=== PATIENT | male | born 1960 | race Caucasian/White ===

== ENCOUNTER 2019-04-15 08:59 | Inpatient (IN) | payer OTHER ==
[2019-04-15] VITALS (587 sets, daily range): BP systolic 91–132; BP diastolic 65–79; PULSE 77–98; TEMP 98.3–101.2; O2SAT 83–100
[~2019-04-15] VITALS: Ht 172.7 cm; Wt 71.1 kg
--- NOTE | 2019-04-15 10:00 | NUR ---
Pt admitted to ICU bed 2 from [facility] via EMS. Pt A/Ox4. Pt on levophed gtt through Left PIV AC. Pt states he feel tired. PT able to transfer to ICU bed. Pt connect to [facility]. HR SR 70s. SBP 90s with levophed gtt. Pt c/o pain 4/10 chest, states hurts from coughing. Assessment completed. Discussed plan of care r/t vital signs, dr haque, and levophed gtt with pt. Pt verbalized understanding. CAll light in reach.
--- NOTE | 2019-04-15 10:15 | NUR ---
Pt transferred from [facility] with Levophed 16mg concentration gtt. Levophed 16mg gtt dc'd and changed to Levophed 4mg concentration. SBP 90s.
[2019-04-15] MEDS ORDERED: ASPIRIN 81M81 MG/TA2 PO (10:18)
[2019-04-15] MEDS ORDERED: TENORMIN 2525 MG/TAB PO (10:19)
[2019-04-15] MEDS ORDERED: PERIACTIN 4MG TA4 MG PO (10:19)
[2019-04-15] MEDS ORDERED: DULCOLAX STOOL100 MG PO (10:20)
[2019-04-15] MEDS ORDERED: VALIUM 2MG T2 MG/TAB PO (10:20)
[2019-04-15] MEDS ORDERED: EPA FISH OIL1 SGL PO (10:21)
[2019-04-15] MEDS ORDERED: IBU600 MG PO (10:21)
[2019-04-15] MEDS ORDERED: HCTZ 25MG TAB25 MG PO (10:21)
[2019-04-15] MEDS ORDERED: MELATIN 3 MG-11 TAB PO (10:22)
[2019-04-15] MEDS ORDERED: MULTIPLE VITAMI1 CAP PO (10:22)
[2019-04-15] MEDS ORDERED: PRINIVIL10 MG PO (10:22)
[2019-04-15] MEDS ORDERED: PRILOSEC 20MG20 MG PO (10:23)
--- NOTE | 2019-04-15 11:30 | NUR ---
Right IJ TLC inserted by Dr Neal at bedside. Placement verified by Dr Neal and hoang to use TLC.
[2019-04-15] MEDS ORDERED: TENORMIN 5050 MG/TAB PO (12:28)
[2019-04-15] MEDS ORDERED: K-DUR20 MEQ PO (12:37)
[2019-04-15 12:38] LABS: BASO % 0.1 % (0.0-2.0); GRAN # 6.6 (1.4-6.5); GRAN % 81.6 % (42.2-75.2); HEMOGLOBIN 12.2 g/dl (13.5-18.0); LYMPH # 0.8 (1.2-3.4); LYMPH % 10.1 % (20.0-51.0); MEAN CELL VOLUME 94 fl (80.0-100.0); MEAN CORPUSCULAR HEMOGLOBIN 31 pg (27.0-31.0); MEAN CORPUSCULAR HGB CONC 33 g/dl (33.0-37.0); MEAN PLATELET VOLUME 9.5 fl (7.4-10.4); MONO # 0.6 (0.1-0.6); MONO % 7.6 % (1.7-9.3); PLATELET COUNT 95 K/mm3 (130-400); RED BLOOD COUNT 3.94 M/mm3 (4.20-5.60); REDCELL DISTRIBUTION WIDTH-CV 12.6 % (11.5-14.5)
[2019-04-15] MEDS ORDERED: SEROQUEL400 MG PO (12:38)
[2019-04-15] MEDS ORDERED: ZOCOR 80MG80 MG PO (12:39)
[2019-04-15] MEDS ORDERED: FLOMAX 0.40.4 MG/CAP PO (12:40)
[2019-04-15] MEDS ORDERED: EFFEXOR-XR150 MG PO (12:41)
[2019-04-15] MEDS ORDERED: IMITREX 25MG TA25 MG PO (12:42)
[2019-04-15 12:50] LABS: ANION GAP 11 mmol/L (7-16); BLOOD UREA NITROGEN 22 mg/dL (9-20); CALCIUM 8.1 mg/dL (8.4-10.2); CARBON DIOXIDE 20 mmol/L (22-30); CHLORIDE 108 mmol/L (98-107); CREATININE, serum 1.12 (0.66-1.25); GLUCOSE 99 mg/dL (74-106); POTASSIUM 3.6 mmol/L (3.4-5.0); SODIUM 139 mmol/L (137-145)
[2019-04-15 13:05] LABS: TROPONIN-I < 0.012 ng/mL (0.000-0.035)
[2019-04-15 13:12] LABS: ARTERIAL BLD GAS O2 SATURATION 90.6 % (92-100); ARTERIAL BLD GAS TCO2 CT 20.2; ARTERIAL BLOOD GAS BASE EXCESS -4.5 (-2-2); ARTERIAL BLOOD GAS HCO3 19.3 meq/L (22-26); ARTERIAL BLOOD GAS PCO2 31.6 mmHg (35-45); ARTERIAL BLOOD GAS PO2 58.3 mmHg (80-100)
--- NOTE | 2019-04-15 17:45 | NUR ---
Pt in droplet isolation for positive flu A.
[2019-04-15 18:05] LABS: PH 5 (5-8); SQUAMOUS EPITHELIAL 0-2 /hpf; URINE APPEARANCE Clear; URINE BACTERIA None Seen /hpf; URINE BILIRUBIN Negative (NEGATIVE); URINE BLOOD Negative (NEGATIVE); URINE COLOR Yellow; URINE GLUCOSE 3+ (NEGATIVE); URINE KETONE Trace (NEGATIVE); URINE LEUKOCYTE ESTERASE Negative (NEGATIVE); URINE NITRATE Negative (NEGATIVE); URINE PROTEIN(semi-quant) Negative (NEGATIVE); URINE RBC 0-2 /hpf; URINE UROBILINOGEN Negative (NEGATIVE); URINE WBC 0-2 /hpf
[2019-04-15 19:06] LABS: COLLECTION METHOD CLEAN CATCH
--- NOTE | 2019-04-15 19:35 | NUR ---
Report given to BREANNE Ybarra.
[2019-04-16] VITALS (1227 sets, daily range): BP systolic 102–140; BP diastolic 0–99; PULSE 61–97; TEMP 97.8–98.5; O2SAT 89–100
[2019-04-16 05:19] LABS: BASO % 0.3 % (0.0-2.0); GRAN % 69.4 % (42.2-75.2); LYMPH # 1.6 (1.2-3.4); LYMPH % 22.8 % (20.0-51.0); MEAN CELL VOLUME 95 fl (80.0-100.0); MEAN CORPUSCULAR HEMOGLOBIN 31 pg (27.0-31.0); MEAN CORPUSCULAR HGB CONC 33 g/dl (33.0-37.0); MEAN PLATELET VOLUME 9.6 fl (7.4-10.4); MONO # 0.5 (0.1-0.6); MONO % 6.8 % (1.7-9.3); PLATELET COUNT 93 K/mm3 (130-400); RED BLOOD COUNT 3.56 M/mm3 (4.20-5.60); REDCELL DISTRIBUTION WIDTH-CV 12.9 % (11.5-14.5)
[2019-04-16 05:27] LABS: HEMATOCRIT 33.7 % (42.0-52.0)
[2019-04-16 05:35] LABS: ALBUMIN 3.3 gm/dL (3.5-5.0); BILIRUBIN,TOTAL 0.6 mg/dL (0.0-1.0); CALCIUM 8.1 mg/dL (8.4-10.2); CREATININE, serum 0.89 (0.66-1.25); POTASSIUM 3.4 mmol/L (3.4-5.0)
[2019-04-16 05:41] LABS: INR 1.3 (0.8-3.0); PROTHROMBIN TIME 15.5 SECONDS (9.7-12.8)
--- NOTE | 2019-04-16 06:56 | NUR ---
DR. ELDRIDGE AT BEDSIDE WITH PT.
--- NOTE | 2019-04-16 07:15 | NUR ---
Bedside shift report received from BREANNE Ybrara. Patient is awake and resting, no complaints or concerns at this time. Full assessment completed. Call light placed within reach. Bed in lowest position. Side rails up x2.
--- NOTE | 2019-04-16 08:00 | NUR ---
Patient does not have an NPO order and food tray delivered to room. Patient eats about 50% of food. NPO order placed, Dr. Knight made aware. Will continue NPO until heart cath later this afternoon.
--- NOTE | 2019-04-16 11:00 | NUR ---
SUPPLIER RELATIONSHIP DIRECTOR student met with the patient to complete initial intake. The patient lives in [place] with his , Amalia. The patient denies DME usage and patient reports independence with ADLs. The patient's PCP is Captain Feldman and patient receives medications from [place] or [facility] in [place]. The patient belongs the Red Team at the [facility]. The patient does not have advanced directives in the EMR. DPOA-HC form provided. marketing services specialist will continue to follow to ensure a safe discharge.
--- NOTE | 2019-04-16 12:24 | NUR ---
Patient has no complaints or concerns at this time. Full assessment completed. Vital sign stabel. Bed in lowest position. Side rails up x2. Call light remains within reach.
--- NOTE | 2019-04-16 13:08 | NUR ---
SEE MERGE FOR MEDICATION ADMINISTRATION TIMES AND INTRA AND POST SEDATION ASSESSMENTS.
--- NOTE | 2019-04-16 14:30 | NUR ---
Patient transferred back to ICU02 by 2 quality lab assoc RNs with no complications. Right radial site assessed. TR band in place, site soft with no hematoma, no drainage present. Call light placed within reach. Bed in lowest position. Side rails up x3. Patient has no complaints or concerns at this time.
--- NOTE | 2019-04-16 15:00 | NUR ---
Patient is noted to have scant drainage to right radial cath site. No hematoma present. 2cc air added to TR band at this time. Drainage cleaned up as best as possible and no further bleeding is noted at this time. Will continue to closely monitor site.
--- NOTE | 2019-04-16 17:20 | NUR ---
3cc taken out of TR band and site began to ooze. 1cc air replaced in TR band and oozing subsided. TR band has 13cc air in it at this time.
--- NOTE | 2019-04-16 19:30 | NUR ---
Bedside shift report given to BREANNE Ybarra at this time.
--- NOTE | 2019-04-16 22:00 | NUR ---
2119 - LOOSENED TR BAND BY 2 MLS OF AIR. 11 CC OF AIR LEFT. 2139 - LOOSENED TR BAND BY 2 MLS OF AIR. 9 CC OF AIR LEFT.
--- NOTE | 2019-04-16 22:42 | NUR ---
2240 - LOOSENED TR BAND BY 4 MLS OF AIR. 5 CC OF AIR LEFT.
[2019-04-17] VITALS (520 sets, daily range): BP systolic 108–124; BP diastolic 73–90; PULSE 7–99; TEMP 97.2–98.2; O2SAT 94–100
--- NOTE | 2019-04-17 04:28 | NUR ---
Nurse comfirms am ABG has been cancelled.
--- NOTE | 2019-04-17 05:06 | NUR ---
0125 - TR BAND OFF, NO BLEEDING NOTED. SITE SOFT WITH NO HEMATOMA. PULSES STRONG TO PALPATE.
[2019-04-17 06:18] LABS: BASO % 0.2 % (0.0-2.0); EOS % 0.7 % (0-4.0); GRAN # 3.5 (1.4-6.5); HEMOGLOBIN 11.6 g/dl (13.5-18.0); LYMPH # 1.5 (1.2-3.4); LYMPH % 26.8 % (20.0-51.0); MEAN CELL VOLUME 94 fl (80.0-100.0); MEAN CORPUSCULAR HEMOGLOBIN 31 pg (27.0-31.0); MEAN CORPUSCULAR HGB CONC 33 g/dl (33.0-37.0); MEAN PLATELET VOLUME 9.9 fl (7.4-10.4); MONO # 0.5 (0.1-0.6); MONO % 8.8 % (1.7-9.3); PLATELET COUNT 98 K/mm3 (130-400); RED BLOOD COUNT 3.76 M/mm3 (4.20-5.60); REDCELL DISTRIBUTION WIDTH-CV 12.9 % (11.5-14.5)
[2019-04-17 06:22] LABS: INR 1.1 (0.8-3.0); PROTHROMBIN TIME 13.1 SECONDS (9.7-12.8)
[2019-04-17 06:33] LABS: HEMATOCRIT 35.2 % (42.0-52.0)
[2019-04-17 06:53] LABS: ALBUMIN 3.6 gm/dL (3.5-5.0); BILIRUBIN,TOTAL 0.7 mg/dL (0.0-1.0); CALCIUM 8.9 mg/dL (8.4-10.2); CREATININE, serum 0.7 (0.66-1.25); MAGNESIUM 1.8 mg/dL (1.6-2.3); POTASSIUM 3.6 mmol/L (3.4-5.0); TOTAL PROTEIN 6.4 gm/dL (6.4-8.2)
--- NOTE | 2019-04-17 19:23 | NUR ---
Bedside report given to Lucy RAYMUNDO
--- NOTE | 2019-04-17 20:00 | NUR ---
Assessment complete; patient denies any concerns at this time. VS stable. Provided toothbrush and warm wipes for comfort. Will continue to monitor.
[2019-04-18] VITALS (14 sets, daily range): BP systolic 108–116; BP diastolic 80; PULSE 83–91; TEMP 97.7–98; O2SAT 81–86
--- NOTE | 2019-04-18 00:40 | NUR ---
Patient resting in bed; denies any complaints at this time.
--- NOTE | 2019-04-18 05:00 | NUR ---
Patient resting in bed; no complaints at this time.
[2019-04-18 05:35] LABS: BASO % 0.2 % (0.0-2.0); EOS % 0.8 % (0-4.0); GRAN # 2.9 (1.4-6.5); GRAN % 57.3 % (42.2-75.2); HEMOGLOBIN 12.8 g/dl (13.5-18.0); LYMPH # 1.6 (1.2-3.4); LYMPH % 32.7 % (20.0-51.0); MEAN CELL VOLUME 94 fl (80.0-100.0); MEAN CORPUSCULAR HEMOGLOBIN 31 pg (27.0-31.0); MEAN CORPUSCULAR HGB CONC 33 g/dl (33.0-37.0); MEAN PLATELET VOLUME 9.2 fl (7.4-10.4); MONO # 0.4 (0.1-0.6); MONO % 8.6 % (1.7-9.3); PLATELET COUNT 112 K/mm3 (130-400); RED BLOOD COUNT 4.13 M/mm3 (4.20-5.60); REDCELL DISTRIBUTION WIDTH-CV 12.7 % (11.5-14.5)
[2019-04-18 05:52] LABS: INR 1.1 (0.8-3.0); PROTHROMBIN TIME 12.5 SECONDS (9.7-12.8)
[2019-04-18 05:53] LABS: ALBUMIN 4.1 gm/dL (3.5-5.0); BILIRUBIN,TOTAL 0.9 mg/dL (0.0-1.0); CALCIUM 9.4 mg/dL (8.4-10.2); CREATININE, serum 0.82 (0.66-1.25); POTASSIUM 3.7 mmol/L (3.4-5.0); TOTAL PROTEIN 7.2 gm/dL (6.4-8.2)
[2019-04-18] MEDS ORDERED: LEVAQUIN 750MG750 M1 PO (11:40)
[2019-04-18] MEDS ORDERED: LIPITOR 80MG80 MG PO (11:41)
[2019-04-18] MEDS ORDERED: BRILINTA90 MG PO (11:41)
[2019-04-18] MEDS ORDERED: TAMIFLU 75MG75 MG PO (11:41)
[2019-04-18] MEDS ORDERED: TOPROL XL 25MG25 MG PO (11:42)
--- NOTE | 2019-04-18 13:05 | NUR ---
Discharge instructions reviewed. RIJ discontinued per protocol. DC home acc by spouse.
--- NOTE | 2019-04-18 13:12 | NUR ---
The patient discharge home with family today, 04/17. There are no additional needs at this time.
== END 2019-04-18 13:40 | disposition home or self-care (01) | DRG 853 ==
LOC: ICU 08:59
PROVIDERS: Internal Medicine Pulmonary Disease; ADMIT Internal Medicine
PROC: 02HV33Z Insertion of Infusion Device into Superior Vena Cava, Percutaneous Approach (ICD-10-PCS; 2019-04-15)
PROC: 027036Z Dilation of Coronary Artery, One Artery with Three Drug-eluting Intraluminal Devices, Percutaneous Approach (ICD-10-PCS; principal; 2019-04-16)
PROC: B2111ZZ Fluoroscopy of Multiple Coronary Arteries using Low Osmolar Contrast (ICD-10-PCS; 2019-04-16)
PROC: 4A023N7 Measurement of Cardiac Sampling and Pressure, Left Heart, Percutaneous Approach (ICD-10-PCS; 2019-04-16)
DX: A41.89 Other specified sepsis (principal); I21.4 Non-ST elevation (NSTEMI) myocardial infarction; N17.9 Acute kidney failure, unspecified; I25.110 Atherosclerotic heart disease of native coronary artery with unstable angina pectoris; I10 Essential (primary) hypertension; N40.0 Benign prostatic hyperplasia without lower urinary tract symptoms; J10.1 Influenza due to other identified influenza virus with other respiratory manifestations; E11.9 Type 2 diabetes mellitus without complications; Z87.891 Personal history of nicotine dependence
CPT/HCPCS: 99231-AI; 99233-AI; 99239; A4216; C9600; J0153; J0692; J1644; J1956; J2250; J3010; J3480; J7030; J7060; J7120; Q9967

== ENCOUNTER → 2021-07-15 | Outpatient (CLI) | payer OTHER ==
[~2021-07-15] MED LIST: ASPIRIN 81M81 MG/TA2 PO; BRILINTA90 MG PO; DULCOLAX STOOL100 MG PO; EFFEXOR-XR150 MG PO; EPA FISH OIL1 SGL PO; FLOMAX 0.40.4 MG/CAP PO; HCTZ 25MG TAB25 MG PO; IBU600 MG PO; IMITREX 25MG TA25 MG PO; K-DUR20 MEQ PO; LEVAQUIN 750MG750 M1 PO; LIPITOR 80MG80 MG PO; MELATIN 3 MG-11 TAB PO; MULTIPLE VITAMI1 CAP PO; PERIACTIN 4MG TA4 MG PO; PRILOSEC 20MG20 MG PO; PRINIVIL10 MG PO; SEROQUEL400 MG PO; TAMIFLU 75MG75 MG PO; TENORMIN 2525 MG/TAB PO; TENORMIN 5050 MG/TAB PO; TOPROL XL 25MG25 MG PO; VALIUM 2MG T2 MG/TAB PO; ZOCOR 80MG80 MG PO
== END ==
LOC: MHCPAIN 08:29
DX: M47.892 Other spondylosis, cervical region (principal); M54.12 Radiculopathy, cervical region; F17.210 Nicotine dependence, cigarettes, uncomplicated; I50.9 Heart failure, unspecified; Z95.5 Presence of coronary angioplasty implant and graft
CPT/HCPCS: G0463

== ENCOUNTER → 2021-07-30 | Outpatient (CLI) | payer OTHER | LOC: MHCPAIN 08:30 | DX: M47.812 Spondylosis without myelopathy or radiculopathy, cervical region (principal); M54.12 Radiculopathy, cervical region | CPT/HCPCS: J1100; Q9967 ==

== ENCOUNTER → 2021-08-19 | Outpatient (CLI) | payer OTHER | LOC: MHCPAIN 07:39 | DX: M47.812 Spondylosis without myelopathy or radiculopathy, cervical region (principal); M54.12 Radiculopathy, cervical region; M96.1 Postlaminectomy syndrome, not elsewhere classified; I25.10 Atherosclerotic heart disease of native coronary artery without angina pectoris; F17.210 Nicotine dependence, cigarettes, uncomplicated | CPT/HCPCS: G0463 ==

== ENCOUNTER → 2021-09-03 | Outpatient (CLI) | payer OTHER | LOC: MHCPAIN 08:27 | DX: M47.812 Spondylosis without myelopathy or radiculopathy, cervical region (principal); M54.12 Radiculopathy, cervical region | CPT/HCPCS: J0461; J1100; Q9967 ==

== ENCOUNTER → 2021-09-16 | Outpatient (CLI) | payer OTHER | LOC: MHCPAIN 10:38 | DX: M47.812 Spondylosis without myelopathy or radiculopathy, cervical region (principal); M54.12 Radiculopathy, cervical region; G89.29 Other chronic pain | CPT/HCPCS: G0463 ==

== ENCOUNTER → 2021-10-01 | Outpatient (CLI) | payer OTHER | LOC: MHCPAIN 09:00 | DX: M47.812 Spondylosis without myelopathy or radiculopathy, cervical region (principal); M54.12 Radiculopathy, cervical region | CPT/HCPCS: J1100; Q9967 ==

== ENCOUNTER → 2021-11-10 | Outpatient (CLI) | payer OTHER | LOC: MHCPAIN 07:57 | DX: M47.816 Spondylosis without myelopathy or radiculopathy, lumbar region (principal); M54.16 Radiculopathy, lumbar region; M53.3 Sacrococcygeal disorders, not elsewhere classified; M54.12 Radiculopathy, cervical region; F17.210 Nicotine dependence, cigarettes, uncomplicated | CPT/HCPCS: G0463 ==

== ENCOUNTER → 2021-12-07 | Outpatient (CLI) | payer OTHER | LOC: MHCPAIN 09:22 | DX: M47.817 Spondylosis without myelopathy or radiculopathy, lumbosacral region (principal); M53.3 Sacrococcygeal disorders, not elsewhere classified; M54.16 Radiculopathy, lumbar region | CPT/HCPCS: J1100; Q9967 ==

== ENCOUNTER → 2022-03-30 | Outpatient (CLI) | payer OTHER | LOC: MHCPAIN 07:52 | DX: M47.812 Spondylosis without myelopathy or radiculopathy, cervical region (principal); M54.2 Cervicalgia; M54.50 Low back pain, unspecified; F17.210 Nicotine dependence, cigarettes, uncomplicated | CPT/HCPCS: G0463 ==